=== PATIENT | female | born 1980 | race Caucasian/White ===

== ENCOUNTER 2017-05-07 13:48 | Emergency (ER) | payer BC, OTHER ==
[~2017-05-07] VITALS: Ht 162.6 cm; Wt 68.5 kg
[~2017-05-07 13:48] MED LIST: AMBI5TAB PO; FERR324T PO; LORT7.5T3 PO; PREN0.01 PO
[2017-05-07 13:50] VITALS: BP 154/97; PULSE 88; RESP 14; TEMP 98.8; O2SAT 99
--- NOTE | 2017-05-07 13:58 | PD ---
HPI Chief Complaint: Abdominal Pain Time Seen by Provider: 13:58 Travel History International Travel<30 days: No Contact w/Intl Traveler<30days: No Traveled to known affect area: No History of Present Illness HPI 36 YO female with PMH of dysmenorrhea presents to the ED for evaluation of months long history of intermittent right-sided abdominal cramping. Patient states that the pain is now radiating to the back which has never happened before. She denies fevers, chills, decreased appetite, nausea, vomiting, dysuria, changes in bowel habits, vaginal discharge. LMP April 17. PFSH Past Medical History ?: Not Past Surgical History Section: Yes Social History Alcohol Use: No Tobacco Use: No Substance Use: No Allergies-Medications (Allergen,Severity, Reaction): Coded Allergies: Vistaril (Verified Allergy, Severe, 11/07/09) Reported Meds & Prescriptions Reported Meds & Active Scripts Active Tramadol (Tramadol HCl) 50 Mg Tab 50 Mg PO Q8H PRN Ibuprofen 800 Mg Tab 800 Mg PO Q8H PRN Reported Lortab 7.5/500 (Acetaminophen/Hydrocodone Bitart) Tab 1-2 Tab PO Q6HPRN FOR PAIN Ambien (Zolpidem Tartrate) 5 Mg Tab 5 Mg PO HS Ferrous Gluconate 325 Mg Tab 325 Mg PO Vit ( Plus) (Prenat Multivit/[facility]/Iron/Folic Ac) Tab 1 Tab PO DAILY Review of Systems Except as stated in HPI: all other systems reviewed are Neg Physical Exam Narrative GENERAL: Well-nourished, well-developed female in no acute distress.. SKIN: Focused skin assessment warm/dry. HEAD: Normocephalic. EYES: No scleral icterus. No injection or drainage. NECK: Supple, trachea midline. No JVD or lymphadenopathy. CARDIOVASCULAR: Regular rate and rhythm without murmurs, gallops, or rubs. RESPIRATORY: Breath sounds equal bilaterally. No accessory muscle use. GASTROINTESTINAL: Abdomen soft, nondistended. Mild tenderness to palpation in the right lower quadrant. MUSCULOSKELETAL: No cyanosis, or edema. Ambulatory. Moves extremities spontaneously. BACK: Nontender without obvious deformity. No CVA tenderness. Data Data Last Documented VS Vital Signs Date Time Temp Pulse Resp B/P Pulse Ox O2 Delivery O2 Flow Rate FiO2 05/07/17 17:50 98.8 81 16 128/89 99 Room Air Orders Complete Blood Count With Diff (05/07/17 14:12) Comprehensive Metabolic Panel (05/07/17 14:12) Urinalysis - C+S If Indicated (05/07/17 14:12) Iv Access Insert/Monitor (05/07/17 14:12) Sodium Chloride 0.9% Flush (Ns Flush) (05/07/17 14:15) Sodium Chlor 0.9% 1000 Ml Inj (Ns 1000 M (05/07/17 14:12) Ed Urine Pregnancytest Poc (05/07/17 14:12) Ketorolac Inj (Toradol Inj) (05/07/17 14:15) Us Pelvis Comp W Transvaginal (05/07/17 ) Labs Laboratory Tests Test 05/07/17 14:25 White Blood Count 10.2 TH/MM3 Red Blood Count 4.93 MIL/MM3 Hemoglobin 12.4 GM/DL Hematocrit 37.3 % Mean Corpuscular Volume 75.7 FL Mean Corpuscular Hemoglobin 25.1 PG Mean Corpuscular Hemoglobin 33.1 % Concent Red Cell Distribution Width 14.6 % Platelet Count 230 TH/MM3 Mean Platelet Volume 8.8 FL Neutrophils (%) (Auto) 74.1 % Lymphocytes (%) (Auto) 17.6 % Monocytes (%) (Auto) 5.3 % Eosinophils (%) (Auto) 2.7 % Basophils (%) (Auto) 0.3 % Neutrophils # (Auto) 7.6 TH/MM3 Lymphocytes # (Auto) 1.8 TH/MM3 Monocytes # (Auto) 0.5 TH/MM3 Eosinophils # (Auto) 0.3 TH/MM3 Basophils # (Auto) 0.0 TH/MM3 CBC Comment DIFF FINAL Differential Comment Urine Color YELLOW Urine Turbidity CLEAR Urine pH 5.5 Urine Specific Cullen 1.022 Urine Protein NEG mg/dL Urine Glucose (UA) NEG mg/dL Urine Ketones NEG mg/dL Urine Occult Blood NEG Urine Nitrite NEG Urine Bilirubin NEG Urine Urobilinogen LESS THAN 2.0 MG/DL Urine Leukocyte Esterase NEG Urine WBC 7 /hpf Urine Squamous Epithelial 2 /hpf Cells Urine Bacteria RARE /hpf Urine Mucus FEW /lpf Microscopic Urinalysis Comment CULT NOT INDICATED Sodium Level 140 MEQ/L Potassium Level 4.0 MEQ/L Chloride Level 103 MEQ/L Carbon Dioxide Level 28.0 MEQ/L Anion Gap 9 MEQ/L Blood Urea Nitrogen 10 MG/DL Creatinine 0.92 MG/DL Estimat Glomerular Filtration 68 ML/MIN Rate Random Glucose 163 MG/DL Calcium Level 8.8 MG/DL Total Bilirubin 0.3 MG/DL Aspartate Amino Transf 12 U/L (AST/SGOT) Alanine Aminotransferase 24 U/L (ALT/SGPT) Alkaline Phosphatase 77 U/L Total Protein 7.1 GM/DL Albumin 3.8 GM/DL [facility] Medical Decision Making Medical Screen Exam Complete: Yes Emergency Medical Condition: Yes Differential Diagnosis Dysmenorrhea versus ovarian torsion versus ovarian cyst versus leiomyoma versus other Narrative Course 36 YO female with PMH of dysmenorrhea presents to the ED for evaluation of months long history of intermittent right-sided abdominal cramping. Patient states that the pain is now radiating to the back which has never happened before. She denies fevers, chills, decreased appetite, nausea, vomiting, dysuria, changes in bowel habits, vaginal discharge. LMP April 17. Patient is afebrile, normotensive on presentation. Physical exam reveals mild tenderness to palpation in the right lower quadrant. No CVA tenderness. She was administered 1 L normal saline, Toradol IV. CBC, CMP, UA all unremarkable. Transvaginal ultrasound reveals multiple lesions of the uterus suspicious for leiomyoma. There is also cystic changes in the left ovary that the radiologist recommended follow-up. I discussed the results of the workup with the patient. She states that she has follow-up with her director health this week. She was provided a copy of her radiological report and a brief course of anti- inflammatories and tramadol. She is instructed to follow up as planned. She indicated understanding of instructions and is agreeable with the care plan. She is stable and discharged home. Diagnosis Primary Impression: Fibroid uterus Qualified Code: D25.9 - Uterine leiomyoma, unspecified location Additional Impression: Left ovarian cyst Referrals: [facility] Patient Instructions: General Instructions, Ovarian Cyst (ED), Uterine Fibroids (ED) Additional Instructions: Rest, hydrate. Take 800 mg ibuprofen as needed for pain 1 through 6 on the pain scale. Take tramadol up to 3 times a day as needed for pain greater than [address]. [address] while taking tramadol. You have been provided a copy of transvaginal ultrasound results. Please follow up with the [facility] for further evaluation. It's recommended that you have a follow-up ultrasound in 6 weeks. Return to the ED for any urgent or emergent medical condition. Med/Other Pt SpecificInfo: Prescription(s) given Scripts Tramadol 50 Mg Tab50 Mg PO Q8H PRN (PAIN) #12 TAB Ref 0 Prov:Celio Ren MD 05/07/17 Ibuprofen 800 Mg [id number] Mg PO Q8H PRN (Pain/Inflammation) #15 TAB Ref 0 Prov:Celio Ren MD 05/07/17 Disposition: 01 DISCHARGE HOME Condition: Stable Bhumika Pruitt May 07, 2017 13:58
[2017-05-07] MEDS ORDERED: SODIUM CHLOR 0.9% 1000 ML INJ 1,000 ML IV ONE (14:12)
[2017-05-07] MEDS ORDERED: SODIUM CHLORIDE 0.9% FLUSH 10 ML FLUSH IVF PRN (14:15)
[2017-05-07] MEDS ORDERED: KETOROLAC TROMETHAMINE 30 MG/ML (IVP) VIAL IV PUSH ONE (14:15)
[2017-05-07 14:51] LABS: AUTOMATED NEUTROPHIL # 7.6 TH/MM3 (1.8-7.7); BACTERIA, URINE RARE /hpf; BASOPHIL % 0.3 % (0.0-2.0); BLOOD, URINE NEG (NEG); EOSINOPHIL # 0.3 TH/MM3 (0-0.4); EOSINOPHIL % 2.7 % (0.0-4.0); GLUCOSE,URINE NEG (NEG); HEMATOCRIT 37.3 % (35.0-46.0); HEMO FLAGS DIFF FINAL; KETONE, URINE NEG (NEG); LYMPH % 17.6 % (9.0-44.0); LYMPHOCYTE # 1.8 TH/MM3 (1.0-4.8); MEAN CELL VOLUME 75.7 FL (80.0-100.0); MEAN CORPUSCULAR HEMOGLOBIN 25.1 PG (27.0-34.0); MEAN CORPUSCULAR HGB CONC 33.1 % (32.0-36.0); MONO % 5.3 % (0.0-8.0); MUCUS URINE FEW /lpf (OCC); NEUT % 74.1 % (16.0-70.0); NITRITE,URINE NEG (NEG); PH, URINE 5.5 (5.0-8.5); PLATELET COUNT 230 TH/MM3 (150-450); RED BLOOD COUNT 4.93 MIL/MM3 (4.00-5.30); RED CELL DISTRIBUTION WIDTH 14.6 % (11.6-17.2); SQUAMOUS EPITHELIAL CELL URINE 2 /hpf (0-5); URINE COLOR YELLOW (YELLW/STRAW); WHITE BLOOD COUNT 10.2 TH/MM3 (4.0-11.0)
[2017-05-07 14:52] LABS: COMMENT (UR) CULT NOT INDICATED; CULTURE IF INDICATED CULT NOT INDICATED
[2017-05-07 15:06] LABS: ALT (GPT) 24 U/L (10-53); ANION GAP 9 MEQ/L (5-15); AST (GOT) 12 U/L (15-37); BLOOD UREA NITROGEN 10 MG/DL (7-18); CHLORIDE 103 MEQ/L (98-107); GLOMERULAR FILTRATION RATE 68 ML/MIN (>89); SODIUM (NA) 140 MEQ/L (136-145)
[2017-05-07 15:08] LABS: ALKALINE PHOSPHATASE 77 U/L (45-117); TOTAL BILIRUBIN ADULT 0.3 MG/DL (0.2-1.0)
--- NOTE | 2017-05-07 17:10 | RADRPT ---
EXAM DATE/TIME: 05/07/2017 15:47 [facility] COMPARISON: No previous studies available for comparison. INDICATIONS : Pelvic pain. MEDICAL HISTORY : Ovarian cysts. SURGICAL HISTORY : section. ENCOUNTER: Initial ACUITY: 2 days PAIN SCORE: 6/10 LOCATION: Bilateral pelvis MEASUREMENTS: UTERUS: 11.2 x 7.9 x 6.4 cm ENDOMETRIAL STRIPE: 10 mm RIGHT OVARY: 1.6 x 2.4 x 1.6 cm LEFT OVARY: 2.6 x 2.3 x 1.7 cm FINDINGS: UTERUS: There are multiple solid lesions in the uterus, the largest located in the lower uterine segment marisa uring 2.5 cm. A 2nd mass in the lower uterine segments measures 11 mm. There are 4 additional oval hypoechoic masses in the mid body and fundus which measure 1.4 cm, 1.6 cm, 1.1 cm, and 2.6 cm endomet rial stripe has a homogeneous echotexture. RIGHT OVARY: Ovary contains no mass or significant cystic lesion. LEFT OVARY: 2 cystic lesions in the left ovary, one measures 1.8 x 1.9 cm and demonstrates a moderate thickness s eptum. The other is hypoechoic with some internal echoes and measures 1.4 x 1.8 cm. MISCELLANEOUS: A tiny amount of free fluid is seen in the cul-de-sac. CONCLUSION: 1. Multiple masses in the uterus measuring 2.5 cm or less, at least 6 in number, probably representin g multiple uterine fibroids. 2. 2 cystic lesions in the left ovary, one contains internal septation. Given the atypical appearanc e, recommend followup ultrasound examination in 6 weeks. 3. Tiny amount of free fluid in the pelvis. Mirza Pineda MD on May 07, 2017 at 17:02 Board Certified Radiologist. This report was verified electronically.
[2017-05-07] MEDS ORDERED: IBUP800T23 PO (17:27)
[2017-05-07] MEDS ORDERED: TRAM50TA PO (17:27)
[2017-05-07 17:50] VITALS: BP 128/89; PULSE 81; RESP 16; TEMP 98.8; O2SAT 99
== END 2017-05-07 17:53 | disposition home or self-care (01) ==
LOC: NEPD 13:48
DX: D25.9 Leiomyoma of uterus, unspecified (principal); N83.202 Unspecified ovarian cyst, left side; N94.6 Dysmenorrhea, unspecified
CPT/HCPCS: 76830; 76856; 80053; 81001; 84703; 85025; 96361; 96374; 99285; J1885; J7030